=== PATIENT | female | born 1975 | race Caucasian/White ===

== ENCOUNTER 2016-10-10 15:01 | Outpatient (CLI) | payer BC | END 2016-10-10 15:02 | disposition home or self-care (01) | DX: N83.202 Unspecified ovarian cyst, left side (principal); D25.1 Intramural leiomyoma of uterus ==

== ENCOUNTER 2017-12-10 15:36 | Outpatient (CLI) | payer OTHER ==
--- NOTE | 2017-12-16 12:03 | Mammography Report ---
DIGITAL SCREENING MAMMOGRAM: 12/10/2017 CLINICAL INDICATION: A 42-year-old for screening. COMPARISON: 04/2016, 02/2014. TECHNIQUE: Routine CC and MLO projections were obtained of the breasts. FINDINGS: Parenchymal tissue within both breasts is heterogeneously dense, which may lower the sensitivity of mammography; however, there are no dominant masses, suspicious microcalcifications, or secondary signs of malignancy. In comparison to the previous studies, there are no significant changes. IMPRESSION: NO MAMMOGRAPHIC EVIDENCE OF MALIGNANCY. NO SIGNIFICANT INTERVAL CHANGES. RECOMMENDATION: Screening mammography is recommended annually. BIRADS CATEGORY 1 - NEGATIVE. STANDARD QUALIFYING STATEMENTS: 1. This examination was reviewed with the aid of Computed-Aided Detection (CAD). 2. A negative or benign imaging report should not delay biopsy if clinically suspicious findings are present. Consider surgical consultation if warranted. More than 5% of cancers are not identified by imaging. 3. Dense breasts may obscure an underlying neoplasm. TD: 12/16/2017 12:00
== END 2017-12-10 15:37 | disposition home or self-care (01) ==
LOC: DI.S 15:36
PROVIDERS: ATTEND Physician Assistant
DX: Z12.31 Encounter for screening mammogram for malignant neoplasm of breast (principal)
CPT/HCPCS: 77067

== ENCOUNTER 2020-10-11 13:00 | Outpatient (CLI) | payer OTHER ==
--- NOTE | 2020-10-13 09:06 | Mammography Report ---
BILATERAL DIGITAL SCREENING MAMMOGRAM 3D/2D WITH EXAGGERATED CC: 10/11/2020 CLINICAL: Routine Screening. Comparison is made to exams dated: 12/10/2017 mammogram, 05/02/2016 mammogram, and 02/16/2014 mammogram - [facility]. The tissue of both breasts is heterogeneously dense. This may lower the sensitivity of mammography. No significant masses, calcifications, or other findings are seen in either breast. There has been no significant interval change. IMPRESSION: NEGATIVE There is no mammographic evidence of malignancy. A 1 year screening mammogram is recommended. This exam was interpreted at Station ID: [id number]. NOTE: For mammograms, a report in lay terms will be sent to the patient. Approximately 15% of breast malignancies will not be visualized mammographically. In the management of a palpable breast mass, a negative mammogram must not discourage biopsy of a clinically suspicious lesion. Electronically Signed By: Catalino Morales M.D., jr/henny:10/11/2020 13:34:54 ACR BI-RADS Category 1: Negative 3341F PARENCHYMAL PATTERN: (D) - The breast(s) demonstrate(s) heterogeneously dense fibroglandular aurora kerns. BI-RADS CATEGORY: (1) - 1 RECOMMENDATION: (ANNUAL) - Recommend routine annual screening mammography. [id number] 1 year screening LATERALITY: (B)
== END 2020-10-11 13:01 | disposition home or self-care (01) ==
LOC: DI.S 13:00
PROVIDERS: ATTEND Physician Assistant
DX: Z12.31 Encounter for screening mammogram for malignant neoplasm of breast (principal)

== ENCOUNTER 2021-04-06 11:56 | Outpatient (CLI) | payer OTHER ==
--- NOTE | 2021-04-06 14:10 | XRAY Report ---
PROCEDURE: Foot 3 View LT INDICATIONS: FOOT JOINT PAIN, LEFT TECHNIQUE: 3 views of the foot were acquired. COMPARISON: None FINDINGS: Bones: No fractures or dislocations. No suspicious bony lesions. Calcaneal spur is noted. Soft tissues: No tibiotalar joint effusion. Achilles tendon appears normal. IMPRESSION: No visualized acute fracture or dislocation. However, occult injury cannot be excluded. Recommend mike rt interval imaging follow-up in 7-10 days as clinically indicated for additional evaluation. Reviewed by: Anais Patel MD on 04/06/2021 2:09 PM PDT Approved by: Anais Patel MD on 04/06/2021 2:09 PM PDT Station ID: [id number]
== END 2021-04-06 23:59 | disposition home or self-care (01) ==
LOC: DI.S 11:56
PROVIDERS: ATTEND Family Medicine
DX: M79.672 Pain in left foot (principal)